=== PATIENT | female | born 1940 | race Caucasian/White ===

== ENCOUNTER 2017-09-06 11:06 | Day surgery (SDC) | payer OTHER, SELFPAY ==
[~2017-09-06] VITALS: Ht 162.6 cm; Wt 48.4 kg
[~2017-09-06 11:06] MED LIST: ASPI81CH; CONEST.625; DILT120 PO; FENO160; LISHYD1012 PO; Motion Sickness25 M1 PO
== END 2017-09-06 15:50 | disposition home or self-care (01) ==
LOC: ORSCSDS 11:06
DX: R63.4 Abnormal weight loss (principal); K29.50 Unspecified chronic gastritis without bleeding; K64.8 Other hemorrhoids; K57.30 Diverticulosis of large intestine without perforation or abscess without bleeding; R19.4 Change in bowel habit; Z86.010 Personal history of colon polyps; I10 Essential (primary) hypertension; Z79.82 Long term (current) use of aspirin; Z79.899 Other long term (current) drug therapy
CPT/HCPCS: 88305; 88342; J7120

== ENCOUNTER → 2022-11-21 | Outpatient (CLI) | payer OTHER ==
[~2022-11-21] MED LIST changes: +K-Dur10 MEQ PO; +NITR100CA PO; +Zoloft50 MG PO
[2022-11-21 17:57] LABS: BASOPHILS ABSOLUTE AUTO 0.03 K/mm3 (0.00-0.23); BASOPHILS PERCENT AUTO 0 % (0-2); EOSINOPHILS ABSOLUTE AUTO 0.38 K/mm3 (0.00-0.68); EOSINOPHILS PERCENT AUTO 6 % (0-6); Hematocrit 34.5 % (33.0-51.0); Hemoglobin 11.4 g/dL (11.5-16.0); IMMATURE GRAN ABSOLUTE AUTO 0.02 K/mm3 (0.00-0.10); IMMATURE GRAN PERCENT AUTO 0 % (0-1); LYMPHOCYTES ABSOLUTE AUTO 1.83 K/mm3 (0.84-5.20); LYMPHOCYTES PERCENT AUTO 27 % (21-46); MONOCYTES ABSOLUTE AUTO 0.63 K/mm3 (0.16-1.47); MONOCYTES PERCENT AUTO 9 % (4-13); Mean Corpuscular HGB 32.1 pg (26.0-34.0); Mean Corpuscular Volume 97 fL (80-100); Mean Platelet Volume 9.8 fL (9.1-12.4); NEUTROPHILS ABSOLUTE AUTO 3.83 K/mm3 (1.96-9.15); NEUTROPHILS PERCENT AUTO 57 % (41-73); Platelet Count 257 K/mm3 (150-400); RDW Coefficient Variation 12.4 % (11.7-14.2); RDW Standard Deviation 44.8 fL (35.1-46.3); Red Blood Cell Count 3.55 M/mm3 (3.80-5.20); White Blood Cell Count 6.72 K/mm3 (4.00-11.30)
[2022-11-21 19:00] LABS: Albumin, Blood 4.2 g/dL (3.4-5.0); Albumin/Globulin Ratio 1.3 (0.8-1.8); Bilirubin, Total 0.3 mg/dL (0.1-1.0); Bun/Creatinine Ratio 22.7 (12.0-20.0); Calcium, Blood 9.4 mg/dL (8.5-10.1); Creatinine, Blood 0.88 mg/dL (0.40-1.00); Globulin, Blood 3.3 g/dL (2.2-4.0); Potassium, Blood 4.5 mmol/L (3.5-5.5); Total Protein, Blood 7.5 g/dL (6.4-8.2)
== END | disposition home or self-care (01) ==
LOC: LAB SHORT 17:10 → LAB 17:10
PROVIDERS: Family Medicine
DX: I10 Essential (primary) hypertension (principal)
CPT/HCPCS: 80053; 85025

== ENCOUNTER 2022-12-28 07:53 | Observation (INO) | payer OTHER ==
[~2022-12-28] VITALS: Ht 149.9 cm; Wt 42.6 kg
[2022-12-28] MEDS ORDERED: Acetaminophen325 M1 PO (08:11)
[2022-12-28] MEDS ORDERED: Aspir 8181 MG PO (08:11)
[2022-12-28] MEDS ORDERED: DILTIAZEM 24HR120 M4 PO (08:12)
[2022-12-28] MEDS ORDERED: Prinivil10 MG PO (08:12)
[2022-12-28] MEDS ORDERED: MIRALAX17 GM PO (08:13)
[2022-12-28] MEDS ORDERED: MULTI-VITAMIN1 EAC2 PO (08:13)
[2022-12-28] MEDS ORDERED: LOPE2C PO (08:13)
[2022-12-28] MEDS ORDERED: Seroquel Xr50 MG PO (08:14)
[2022-12-28] MEDS ORDERED: SPIR25 PO (08:14)
[2022-12-28] MEDS ORDERED: SERT50 PO (08:14)
[2022-12-28 08:25] LABS: BASOPHILS ABSOLUTE AUTO 0.04 K/mm3 (0.00-0.23); BASOPHILS PERCENT AUTO 1 % (0-2); EOSINOPHILS ABSOLUTE AUTO 0.35 K/mm3 (0.00-0.68); EOSINOPHILS PERCENT AUTO 5 % (0-6); Hematocrit 36.7 % (33.0-51.0); Hemoglobin 12.1 g/dL (11.5-16.0); IMMATURE GRAN ABSOLUTE AUTO 0.02 K/mm3 (0.00-0.10); IMMATURE GRAN PERCENT AUTO 0 % (0-1); LYMPHOCYTES ABSOLUTE AUTO 2.12 K/mm3 (0.84-5.20); LYMPHOCYTES PERCENT AUTO 31 % (21-46); MONOCYTES ABSOLUTE AUTO 0.52 K/mm3 (0.16-1.47); MONOCYTES PERCENT AUTO 8 % (4-13); Mean Corpuscular HGB 31.8 pg (26.0-34.0); Mean Corpuscular Volume 96 fL (80-100); Mean Platelet Volume 9.1 fL (9.1-12.4); NEUTROPHILS ABSOLUTE AUTO 3.75 K/mm3 (1.96-9.15); NEUTROPHILS PERCENT AUTO 55 % (41-73); Platelet Count 279 K/mm3 (150-400); RDW Coefficient Variation 12.1 % (11.7-14.2); Red Blood Cell Count 3.81 M/mm3 (3.80-5.20)
[2022-12-28 08:51] LABS: Albumin/Globulin Ratio 1.2 (0.8-1.8); Bilirubin, Total 0.4 mg/dL (0.1-1.0); Bun/Creatinine Ratio 18.3 (12.0-20.0); Creatinine, Blood 0.82 mg/dL (0.40-1.00); Globulin, Blood 3.2 g/dL (2.2-4.0); Potassium, Blood 4.3 mmol/L (3.5-5.5); Total Protein, Blood 7.2 g/dL (6.4-8.2)
--- NOTE | 2022-12-28 10:55 | NUR ---
Case conference note and visit note: Case conferenced with pt's ER Simon Deleon/ethics & CM prior to my visit and CM and hospitalist after my visit. Upon entering the room, pt's lane was on telephone. Pt is in fowlers position on [facility]. She does not appear to be in distress. She is pointing to her chin and laceration noted under chin from her fall at [facility]. Pt sustained a broken jaw and has a chronic condition/resulting angioedema of the tongue per ER . Pt has underlying dementia and [facility] in [facility]. Family and facility working on moving pt to memory care section [facility] and CM confirmed that is happening today and available to pt once she is stable and ready for d/c back home. Angioedema of tongue may threaten airway. Per ER Dr and Simon Dan, family in agreement with attempting to reduce the swelling of the tongue with medications as a comfort measure and Family wishes to honor pt's previously completed POLST and wishes. Pt's POLST on file requests DNI/DNR and comfort measures. Brief visit with pt and her brother at bedside. Informed we would follow pt for s/s management and support while she was in the hospital. Pt and brother thanked me for my visit.
[2022-12-28] MEDS ORDERED: TRAZ100 PO (13:40)
[2022-12-28 15:00] VITALS: BP 133/94
--- NOTE | 2022-12-28 17:12 | NUR ---
ALERT TO SELF, VERY CONFUSED AND FORGETFUL, BED ALARM ON, MULTIPLE ATTEMPTS TO GET OUT OF BED, CAMERA MONITOR BEING ORDERED, PLEASANTLY CONFUSED, MINIMAL MEDICATIONS, COMFORT CARE, PATIENT IS NOT IMENENT, FACIAL BRUISE AND STITCHES, WILL RELAY TO PM RN
--- NOTE | 2022-12-29 04:36 | NUR ---
SHIFT SUMMARY; COMFORT CARE STATUS PATIENT, THE PT IS VERY CONFUSED THIS SHIFT AND HAS ATTEMPTED/GOTTEN OUT OF BED MULTIPLE TIMES THIS SHIFT. THE PT IS AXO X1 AND VERY CONFUSED. THE PT HAS A HX OF ALZHEMIERS AND DEMENTIA. I CALLED DR. FRANCO LAST NIGHT TO GET THE PT SOMETHING TO HELP RELAX, 5MG OF ZYPREXA WAS ORDERED HOWEVER THAT SEEMED TO BE INEFFECTIVE. THE PT HAS YET TO SLEEP TONIGHT AND HAS BECAME MILDLY AGGREVATED THIS AM. THE PT DENIES ANY SOB, PAIN OR CHEST PAIN/PRESSURE. CURRENTLY THE PT IS RESTING IN BED WITH THE BED IN THE LOWEST POSITION AND THE CALL LIGHT AT BEDSIDE.
--- NOTE | 2022-12-29 09:21 | NUR ---
PATIENT TRANSFERRED TO ROOM 353, MONITOR ALARMED EVERY 10 MINUTES WHILE PATIENT WAS ON THE FLOOR. PLEASANTLY REDIRECTABLE, VERY IMPULSIVE
[2022-12-29 10:29] VITALS: BP 155/77
--- NOTE | 2022-12-29 10:41 | NUR ---
Pal Care visit made to pt, sitting in the hallway of special care unit with her Brother standing next to her. Pt appears restless and anxious. She is confused and has no memory of yesterday's events. Aging bruising noted about face and under chin. Sutures and wound under chin look good with no redness, swelling, drainage or irritation noted despite pt rubbing that area with her thumb. Pt denies feeling pain, nausea and does not demonstrate nonverbal indicators of distress outside of restlessness, which is s/s at baseline due to dementia. Reviewed current status and s/s with pt's Brother, who I met in ER. I discussed pt's return to [facility] with her brother and let him know CM was working with [facility] this am to coordinate that. He asked who would transport pt and stated Pt's laneTamara would be the salesperson household appliances for any arrangements. POLST form requested from [facility] and sent to our medical records for scanning into the EMR. Discussed all of the above with CM when leaving the unit.
--- NOTE | 2022-12-29 15:50 | NUR ---
SHIFT/DC SUMMARY: Searchlight Operator spoke with Aminah at [facility] who states pt will return to memory care facility. Son Samuel here at 1430 to transport pt to facility. Samuel instructed to give dc packet to staff upon arrival. Pt to lobby via wheelchair.
--- NOTE | 2022-12-29 16:17 | NUR ---
THIS INCOME TAX ADJUSTER AGREES WITH ALL NOTES AND ASSESSMENTS BY [facility].
== END 2022-12-29 14:37 | disposition home or self-care (01) ==
LOC: ER 07:53 → MEDS 07:54 → ENPENDDIS 12-29 09:33 → MEDS 12-29 14:37
PROVIDERS: Emergency Medicine; ADMIT Family Medicine
DX: S02.69XA Fracture of mandible of other specified site, initial encounter for closed fracture (principal); W18.30XA Fall on same level, unspecified, initial encounter; S01.81XA Laceration without foreign body of other part of head, initial encounter; Z66 Do not resuscitate; Z51.5 Encounter for palliative care; I10 Essential (primary) hypertension
CPT/HCPCS: 12011; 70450; 70486; 72125; 80053; 85025; 94640; 94664; 94760; 96374-59; 96375; 96375-59; 99285-25; A9270; G0378; J1100; J1200

== ENCOUNTER → 2023-11-01 | Outpatient (CLI) | payer OTHER ==
[~2023-11-01] MED LIST changes: +Acetaminophen325 M1 PO; +Aspir 8181 MG PO; +DILTIAZEM 24HR120 M4 PO; +LOPE2C PO; +MIRALAX17 GM PO; +MULTI-VITAMIN1 EAC2 PO; +Prinivil10 MG PO; +SERT50 PO; +SPIR25 PO; +Seroquel Xr50 MG PO; +TRAZ100 PO
== END ==
LOC: LAB SHORT 09:44 → LAB 09:44
DX: N39.0 Urinary tract infection, site not specified (principal)
CPT/HCPCS: 87077; 87086; 87186

== ENCOUNTER 2024-02-26 17:45 | Emergency (ER) | payer OTHER ==
[~2024-02-26] VITALS: Ht 167.6 cm; Wt 52.2 kg
[2024-02-26 18:09] LABS: Source, Urine Straight Cath
[2024-02-26 18:17] LABS: Appearance, Urine Clear (Clear); Bilirubin, Urine Neg (Neg); Blood, Urine 2+ (Neg); Color, Urine Yellow (P-Yellow); Glucose Qualitative, Urine Neg (Neg); Ketones, Urine Neg (Neg); Leukocyte Esterase, Urine 3+ (Neg); Nitrite, Urine Pos (Neg); Protein, Urine 2+ (Neg); Urobilinogen, Urine 1+ (Normal)
[2024-02-26 18:24] LABS: BASOPHILS ABSOLUTE AUTO 0.04 K/mm3 (0.00-0.23); BASOPHILS PERCENT AUTO 0 % (0-2); EOSINOPHILS ABSOLUTE AUTO 0.11 K/mm3 (0.00-0.68); EOSINOPHILS PERCENT AUTO 1 % (0-6); Hemoglobin 11.4 g/dL (11.5-16.0); IMMATURE GRAN ABSOLUTE AUTO 0.05 K/mm3 (0.00-0.10); IMMATURE GRAN PERCENT AUTO 1 % (0-1); LYMPHOCYTES ABSOLUTE AUTO 1.61 K/mm3 (0.84-5.20); LYMPHOCYTES PERCENT AUTO 15 % (21-46); MONOCYTES ABSOLUTE AUTO 0.76 K/mm3 (0.16-1.47); MONOCYTES PERCENT AUTO 7 % (4-13); Mean Corpuscular HGB 31.9 pg (26.0-34.0); Mean Corpuscular HGB Conc 33.5 g/dL (31.5-36.5); Mean Corpuscular Volume 95 fL (80-100); Mean Platelet Volume 9.7 fL (9.1-12.4); NEUTROPHILS ABSOLUTE AUTO 8.35 K/mm3 (1.96-9.15); NEUTROPHILS PERCENT AUTO 76 % (41-73); Platelet Count 243 K/mm3 (150-400); RDW Coefficient Variation 12.5 % (11.7-14.2); RDW Standard Deviation 43.4 fL (35.1-46.3); Red Blood Cell Count 3.57 M/mm3 (3.80-5.20); White Blood Cell Count 10.92 K/mm3 (4.00-11.30)
[2024-02-26 18:41] LABS: Bacteria Many /hpf; Squamous Epithelial Cells Mod /hpf (Few); Transitional Epithelial Cells Rare /hpf (0-Rare)
[2024-02-26 18:45] LABS: Albumin, Blood 3.8 g/dL (3.4-5.0); Albumin/Globulin Ratio 1.2 (0.8-1.8); Bilirubin, Total 0.5 mg/dL (0.1-1.0); Bun/Creatinine Ratio 38.4 (12.0-20.0); Calcium, Blood 9.2 mg/dL (8.5-10.1); Creatinine, Blood 0.63 mg/dL (0.40-1.00); Globulin, Blood 3.3 g/dL (2.2-4.0); Potassium, Blood 3.5 mmol/L (3.5-5.5); Total Protein, Blood 7.1 g/dL (6.4-8.2)
[2024-02-26] MEDS ORDERED: CefTRIAXone Sodium 1,000 MG in NS 50 ML IV ONE (19:45)
[2024-02-26] MEDS ORDERED: CEFD300 PO (20:05)
[2024-02-26] MEDS ORDERED: Cefdinir 300 MG Cap PO ONE (20:25)
[2024-02-26 21:36] VITALS: BP 122/76
== END 2024-02-26 21:37 | disposition home or self-care (01) ==
LOC: ER 17:45
PROVIDERS: Student in an Organized Health Care Education/Training Program
DX: N39.0 Urinary tract infection, site not specified (principal); I10 Essential (primary) hypertension; F03.90 Unspecified dementia, unspecified severity, without behavioral disturbance, psychotic disturbance, mood disturbance, and anxiety; Z66 Do not resuscitate; Z88.8 Allergy status to other drugs, medicaments and biological substances; Z79.899 Other long term (current) drug therapy; Z96.641 Presence of right artificial hip joint
CPT/HCPCS: 73060; 73502; 80053; 81001; 85025; A9270

== ENCOUNTER → 2024-08-11 | Outpatient (CLI) | payer SELFPAY ==
[~2024-08-11] MED LIST changes: +CEFD300 PO
[2024-08-11 16:52] LABS: Source, Urine Voided
[2024-08-11 18:47] LABS: Appearance, Urine Cloudy (Clear); Blood, Urine 3+ (Neg); Color, Urine Yellow (P-Yellow); Glucose Qualitative, Urine Neg (Neg); Ketones, Urine Neg (Neg); Leukocyte Esterase, Urine 3+ (Neg); Nitrite, Urine Neg (Neg); Protein, Urine 2+ (Neg); Urobilinogen, Urine 2+ (Normal)
[2024-08-11 19:00] LABS: Bilirubin, Urine 1+ (Neg); White Blood Cells, Urine TNTC /hpf (0-5)
[2024-08-11 19:01] LABS: Bacteria Many /hpf; Calcium Oxalate Crystals Few /hpf; Squamous Epithelial Cells Few /hpf (Few)
== END | disposition home or self-care (01) ==
LOC: LAB SHORT 16:49 → LAB 16:49
PROVIDERS: Family Medicine
DX: N39.0 Urinary tract infection, site not specified (principal)
CPT/HCPCS: 81001; 87077; 87086; 87186

== ENCOUNTER 2025-03-24 19:03 | Emergency (ER) | payer OTHER, MEDICARE ==
[~2025-03-24] VITALS: Ht 152.4 cm; Wt 45.4 kg
[~2025-03-24 19:03] MED LIST changes: +ACET500 PO; +DULCOLAX400 MG/5 M PO; +Mobic15 MG PO; +OMEP20ER PO; +POTA10T PO; +VISBIOME 112.51 EACH PO
[2025-03-24 19:54] LABS: Source, Urine Clean Catch
[2025-03-24 20:01] LABS: BASOPHILS ABSOLUTE AUTO 0.05 K/mm3 (0.00-0.23); BASOPHILS PERCENT AUTO 1 % (0-2); EOSINOPHILS ABSOLUTE AUTO 0.27 K/mm3 (0.00-0.68); EOSINOPHILS PERCENT AUTO 4 % (0-6); Hematocrit 36.2 % (33.0-51.0); Hemoglobin 12.1 g/dL (11.5-16.0); IMMATURE GRAN ABSOLUTE AUTO 0.06 K/mm3 (0.00-0.10); IMMATURE GRAN PERCENT AUTO 1 % (0-1); LYMPHOCYTES ABSOLUTE AUTO 1.83 K/mm3 (0.84-5.20); LYMPHOCYTES PERCENT AUTO 27 % (21-46); MONOCYTES ABSOLUTE AUTO 0.48 K/mm3 (0.16-1.47); MONOCYTES PERCENT AUTO 7 % (4-13); Mean Corpuscular HGB Conc 33.4 g/dL (31.5-36.5); Mean Corpuscular Volume 99 fL (80-100); NEUTROPHILS ABSOLUTE AUTO 4.17 K/mm3 (1.96-9.15); NEUTROPHILS PERCENT AUTO 61 % (41-73); NRBC ABSOLUTE 0.00 K/mm3 (0.00-0.02); NRBC Auto 0.0 /100 WBC (0.0-0.2); Platelet Count 256 K/mm3 (150-400); RDW Coefficient Variation 12.5 % (11.7-14.2); RDW Standard Deviation 45.1 fL (35.1-46.3)
[2025-03-24 20:22] LABS: Bilirubin, Urine Neg (Neg); Color, Urine Yellow (P-Yellow); Glucose Qualitative, Urine Neg (Neg); Ketones, Urine Neg (Neg); Leukocyte Esterase, Urine 1+ (Neg); Protein, Urine 2+ (Neg); Specific Gravity, Urine 1.025 (1.003-1.022); Urobilinogen, Urine 1+ (Normal)
[2025-03-24 20:30] LABS: Alanine Aminotransfer (ALT/SGP 18.0 U/L (12-78); Albumin, Blood 3.6 g/dL (3.4-5.0); Albumin/Globulin Ratio 1.1 (0.8-1.8); Anion Gap 8.0 mmol/L (3-11); Aspartate Aminotrans (AST/SGOT 19.0 U/L (12-37); Bilirubin, Total 0.3 mg/dL (0.1-1.0); Blood Urea Nitrogen 29.0 mg/dL (8-24); CO2, Blood 26.0 mmol/L (21-32); Calcium, Blood 9.1 mg/dL (8.5-10.1); Chloride, Blood 108.0 mmol/L (98-108); Creatinine, Blood 0.77 mg/dL (0.40-1.00); Globulin, Blood 3.4 g/dL (2.2-4.0); Glucose, Blood 144.0 mg/dL (70-99); Potassium, Blood 3.8 mmol/L (3.5-5.5); Sodium, Blood 138.0 mmol/L (136-145); Total Protein, Blood 7.0 g/dL (6.4-8.2)
[2025-03-24 20:48] LABS: Red Blood Cells, Urine 25-50 /hpf (0-2)
[2025-03-24 21:00] VITALS: BP 147/80
[2025-03-24] MEDS ORDERED: CEPH500 PO (21:00)
== END 2025-03-24 21:41 | disposition home or self-care (01) ==
LOC: ER 19:03
PROVIDERS: Emergency Medicine
DX: Z04.3 Encounter for examination and observation following other accident (principal); N39.0 Urinary tract infection, site not specified; F01.50 Vascular dementia, unspecified severity, without behavioral disturbance, psychotic disturbance, mood disturbance, and anxiety; I10 Essential (primary) hypertension; E78.5 Hyperlipidemia, unspecified; Z66 Do not resuscitate; Z88.8 Allergy status to other drugs, medicaments and biological substances; Z79.899 Other long term (current) drug therapy
CPT/HCPCS: 51701; 70450; 80053; 81001; 85025; 87077; 87086; 87186; 93005; 93010; 99284-25